=== PATIENT | female | born 1960 | race African-American/Black ===

== ENCOUNTER → 2016-03-13 | Outpatient (CLI) | payer OTHER ==
--- NOTE | 2016-03-13 16:16 | MA ---
Screening Digital Mammogram With Tomosynthesis Clinical Indications: Routine screening. Technique: Standard digital cephalocaudal and tomosynthesis mediolateral oblique projections are obt ained. The digital images were processed by the [employer] computer aided detection system. Comparison: November 12, 2013, July 2011 and June 2010 Breast density: B; There are scattered fibroglandular densities. Findings: CAD was reviewed. There is a small microlobulated nodule beneath the inner left nipple. The remainder of the left and right breast are stable. Impression: Nodular density behind the left nipple.. Recommendation: Ultrasound for further evaluation. BI-RADS 0. Additional imaging of the retronipple left breast with ultrasound. [facility] will send a result letter to the patient. Negative mammography should not preclude additional workup of a clinically suspicious finding. The patient's information is entered into a reminder system with a target due date for her next mammo gram.
== END ==
LOC: FIMAGING 15:48
DX: Z12.31 Encounter for screening mammogram for malignant neoplasm of breast (principal)
CPT/HCPCS: G0202

== ENCOUNTER → 2016-03-25 | Outpatient (CLI) | payer OTHER ==
--- NOTE | 2016-03-25 10:25 | US ---
Diagnostic Left Breast Ultrasound History: Nodular retroareolar asymmetry on mammograms. Comparison: Mammograms through May 26, 2008. Technique: Limited grayscale and Doppler ultrasound in the region of mammographic abnormality is perf ormed. Real-time sonography is performed by the radiologist. Findings: There are scattered prominent retroareolar ducts in the 12 o'clock left breast, correspondi ng to the finding on screening mammograms. No filling defects are identified within the ducts. No maximiliano id masses or areas of architectural distortion are identified. Impression: BI-RADS 2: Benign Findings. Recommendation: Screening mammograms in one year or sooner if clinically indicated. Findings and july mmendations were discussed with the patient. [facility] will send a result letter to the patient.
== END ==
LOC: BRMIMAGING 09:14
DX: Z12.39 Encounter for other screening for malignant neoplasm of breast (principal); R92.2 Inconclusive mammogram
CPT/HCPCS: 76641-PO

== ENCOUNTER → 2018-03-27 | Outpatient (CLI) | payer OTHER | LOC: FIMAGING 16:14 | PROVIDERS: ATTEND Obstetrics & Gynecology Gynecology | DX: Z12.31 Encounter for screening mammogram for malignant neoplasm of breast (principal) ==